=== PATIENT | female | born 2000 | race Caucasian/White ===

== ENCOUNTER 2024-08-22 10:14 | Emergency (ER) | payer OTHER ==
[2024-08-22 10:25] VITALS: RESP 18; TEMP 98.2; BMI 20.3
[2024-08-22] MEDS: SODIUM CHLORIDE 0.9% 500 ML INFUS.BAG IV ONE ×2 (10:39→12:24)
[2024-08-22] MEDS ORDERED: ACETAMINOPHEN 325 MG TABLET (FP) ONE (10:40)
[2024-08-22] MEDS ORDERED: ONDANSETRON 4 MG/2 ML VIAL ONE (10:40)
[2024-08-22] MEDS ORDERED: ACETAMINOPHEN INJECTION 100 ML ONE (10:44)
[2024-08-22 10:45] LABS: ABSOLUTE IMMATURE GRANULOCYTES 0.02 x10^3/uL (0.0-0.031); BASOPHILS # 0.05 x10^3/uL (0.01-0.08); EOSINOPHIL % 1.2 % (0.7-5.8); EOSINOPHILS # 0.11 x10^3/uL (0.04-0.36); HEMATOCRIT 39.5 % (34.1-44.9); HEMOGLOBIN 13.1 g/dL (11.2-15.7); MCHC 33.2 g/dl (32.2-35.5); MEAN CELL VOLUME 86.8 fl (79.4-94.8); MEAN PLT VOLUME 9.2 fl (9.4-12.3); MONOCYTE # 0.71 x10^3/uL (0.24-0.86); MONOCYTE % 7.4 % (4.7-12.5); PLATELET COUNT 255 x10^3/uL (182-369)
[2024-08-22] MEDS: ACETAMINOPHEN 325 MG TABLET (FP) PO ONE (10:45)
[2024-08-22] MEDS: ONDANSETRON 4 MG/2 ML VIAL IVPUSH ONE (10:46)
[2024-08-22] MEDS: ACETAMINOPHEN 1000 MG/100 ML BAG IVPB ONE (10:46)
[2024-08-22 11:15] LABS: ALBUMIN 4.5 g/dl (3.4-5.0); BILIRUBIN,TOTAL 0.7 mg/dl (0.2-1); CALCIUM 9.5 mg/dl (8.5-10.1); CREATININE 0.8 mg/dl (0.6-1.3); TOT PROT 6.9 g/dl (6.4-8.2)
[2024-08-22] MEDS: IBUPROFEN 400 MG TABLET (FP) PO ONE (12:18)
[2024-08-22 13:17] VITALS: BP 107/68; PULSE 60
[2024-08-22 13:47] LABS: HCV DIAGNOSTIC IN-HOUSE W/RFLX NON-REACTIVE (NONREACTIVE)
[2024-08-22 18:21] LABS: HIV INTERPRETATION NEGATIVE (NEGATIVE)
== END 2024-08-22 13:26 | disposition home or self-care (01) ==
LOC: FER 10:14
PROC: 3E033NZ Introduction of Analgesics, Hypnotics, Sedatives into Peripheral Vein, Percutaneous Approach (ICD-10-PCS; principal; 2024-08-22)
PROC: 3E033GC Introduction of Other Therapeutic Substance into Peripheral Vein, Percutaneous Approach (ICD-10-PCS; 2024-08-22)
DX: R42 Dizziness and giddiness (principal); R11.0 Nausea; R19.7 Diarrhea, unspecified; R10.84 Generalized abdominal pain; R00.1 Bradycardia, unspecified
CPT/HCPCS: 36415; 80053; 84703; 85025; 86803; 87389; 93005; 96374; 96375; 99284-25